=== PATIENT | female | born 1970 | race Caucasian/White ===

== ENCOUNTER → 2016-10-04 | Outpatient (CLI) | payer MEDICARE ==
[~2016-10-04] MED LIST: FLEXERIL10 MG PO; LORTAB 5/500 TA1 TA2 PO; PREDNISONE PO
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
== END | disposition home or self-care (01) ==
LOC: CRAD 14:56
DX: M54.2 Cervicalgia (principal); M54.5 Low back pain
CPT/HCPCS: 72040; 72100

== ENCOUNTER 2016-10-11 16:00 | Emergency (ER) | payer MEDICARE ==
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
--- NOTE | ~2016-10-11 | CR58 ---
[facility] A Service of [facility] RADIOLOGY TEXT RESULTS PATIENT: SHAWNA PROCTOR LOCATION: [facility] : 68 UNIT #: [id number] AGE: [address]: Louisa Becerra SEX: F ORDER DR: [id number] [id number] [place], [place] [address] [id number] E MR#: [id number] Acc #: [id number] NAME: SHAWNA PROCTOR : 1970 SEX: F STUDY DATE/TIME: 10/11/2016 17:19 UNIT: [facility] ROOM: STUDY DESCRIPTION: CR Cervical Spine 2 or 3 Views Attending Physician: Louisa Becerra Pa-C Ordering Physician: Louisa Becerra Pa-C Primary Care Physician: Mike Bowers M.D. MEDICAL IMAGING REPORT This report is preliminary unless electronic signature is present EXAM Cervical spine series INDICATION Neck stiffness today. PROCEDURE 3-view cervical spine. COMPARISON None. FINDINGS Cervical bodies have normal height, alignment is preserved. Craniocervical junction, the prevertebral soft tissues and the dens are intact. IMPRESSION No acute findings. Dictated by... Kit Quiñones M.D. THIS IS AN ELECTRONICALLY VERIFIED REPORT Kit Quiñones M.D. at 10/12/2016 7:36 AM EED/daja TD: 10/11/2016 23:45 JOB #: [id number] [facility] A Service of [facility] RADIOLOGY TEXT RESULTS PATIENT: SHAWNA PROCTOR LOCATION: [facility] : 68 UNIT #: [id number] AGE: [address]: Louisa Becerra SEX: F ORDER DR: MEDICAL IMAGING REPORT Page 1 of 1 COPY
== END 2016-10-11 18:13 | disposition home or self-care (01) ==
LOC: CED 16:00 → CFTX 16:00
DX: S16.1XXA Strain of muscle, fascia and tendon at neck level, initial encounter (principal); S70.11XA Contusion of right thigh, initial encounter; F41.9 Anxiety disorder, unspecified; Z86.79 Personal history of other diseases of the circulatory system; V03.90XA Pedestrian on foot injured in collision with car, pick-up truck or van, unspecified whether traffic or nontraffic accident, initial encounter; Y92.481 Parking lot as the place of occurrence of the external cause
CPT/HCPCS: 72040; 73502; 96372; 99284; J1885; J2360